=== PATIENT | female | born 1975 | race Caucasian/White ===

== ENCOUNTER 2020-08-05 19:14 | Emergency (ER) | payer MEDICAID ==
[2020-08-05] MEDS ORDERED: Bupivacaine 0.5%/EPINEPHrine 1:200,000 1.8 ML Cartridge INJECT ONE (20:16)
--- NOTE | 2020-08-05 20:49 | EDM.PDOC ---
ED HPI GENERAL MEDICAL PROBLEM - General Chief Complaint: ENT Problem Stated Complaint: BROKEN TOOTH/JAW PAIN Time Seen by Provider: 08/05/20 20:10 Source of Information: Reports: Patient History Limitations: Reports: No Limitations - History of Present Illness INITIAL COMMENTS - FREE TEXT/NARRATIVE: 45-year-old female with severe left mandibular pain from a likely infected sec ond molar. It started this morning and has been worsening all day. Onset: Gradual Duration: Day(s): Location: Reports: Other (Left mandible) left lower tooth pain Pain Score (Numeric/FACES): 15 - Related Data Allergies Allergy/AdvReac Type Severity Reaction Status Date / Time phenazopyridine Allergy Airway Verified 08/05/20 20:01 [From Pyridium] Tightness Home Meds: Home Meds NK [No Known Home Meds] 08/05/20 [History] Past Medical History Respiratory History: Reports: Asthma Gastrointestinal History: Reports: Irritable Bowel Syndrome Genitourinary History: Reports: None [employer] TECHNICIAN History: Reports: Musculoskeletal History: Reports: Fibromyalgia Psychiatric History: Reports: Anxiety Endocrine/Metabolic History: Reports: Obesity/BMI 30+ Hematologic History: Reports: Other (See Below) Other Hematologic History: Factor 5 - Infectious Disease History Infectious Disease History: Reports: Chicken Pox - Past Surgical History HEENT Surgical History: Reports: Myringotomy w Tube(s) Female Surgical History: Reports: Section, Tubal Ligation Social & Family History - Tobacco Use Tobacco Use Status *Q: Current Every Day Tobacco User Years of Tobacco use: 30 Packs/Tins Daily: 0.5 - Recreational Drug Use Recreational Drug Use: Yes Drug Use in Last 12 Months: Yes Recreational Drug Type: Reports: Marijuana/Hashish ED ROS ENT - Review of Systems Review Of Systems: See Below Constitutional: Denies: Fever, Chills Respiratory: Denies: Shortness of Breath Cardiovascular: Denies: Chest Pain GI/Abdominal: Denies: Nausea, Vomiting Musculoskeletal: Reports: Other (Fibromyalgia) Skin: Denies: Erythema ED EXAM, ENT - Physical Exam Exam: See Below Exam Limited By: No Limitations General Appearance: Alert, Anxious, Mild Distress Mouth/Throat: Other (Left mandibular first molar is gone, second molar is eroded anteriorly and extremely tender to percussion. There is surrounding erythema and mild swelling) Head: Atraumatic Neck: No: Lymphadenopathy (R), Lymphadenopathy (L) Respiratory/Chest: No Respiratory Distress Course - Vital Signs Last Recorded V/S: Last Vital Signs Temp 98.3 F 08/05/20 20:27 Pulse 100 08/05/20 20:27 Resp 17 08/05/20 20:27 BP 203/119 H 08/05/20 20:27 Pulse Ox 100 08/05/20 20:27 - Orders/Labs/Meds Meds: Medications Discontinued Medications Generic Name Dose Route Start Last Admin Trade Name Raheem PRN Reason Stop Dose Admin Bupivacaine HCl/Epinephrine Bitart 1.8 ml 08/05/20 20:16 08/05/20 20:50 Bupivacaine 0.5%/Epinephrine 1:200,000 1.8 Ml Cartridge INJECT 08/05/20 20:17 1.8 ml ONETIME ONE Administration - Re-Assessments/Exams Free Text/Narrative Re-Assessment/Exam: 08/06/20 02:23 An inferior alveolar nerve block was obtained with good results. Patient was placed on penicillin VK 500 4 times daily, encouraged to continue with ibuprofen and given 10 hydrocodone for extra pain control. A dental consult for Saturday was written. Departure - Departure Time of Disposition: 20:52 Disposition: Home, Self-Care 01 Clinical Impression: Dental abscess - Discharge Information Instructions: Dental Abscess, [id number] Referrals: PCP,None [Primary Care Provider] - Forms: ED Department Discharge Care Plan Goals: Take 800 mg of ibuprofen 3 times a day, take penicillin 4 times a day through the weekend and try to get worked into the dentist on Saturday morning, a referral will be sent. Sepsis Event Note (ED) - Evaluation Sepsis Screening Result: No Definite Risk - Focused Exam Vital Signs: Vital Signs Temp Pulse Resp BP Pulse Ox 08/05/20 20:27 98.3 F 100 17 203/119 H 100 08/05/20 20:03 98.3 F 100 17 203/119 H 100
== END 2020-08-05 21:00 | disposition home or self-care (01) ==
LOC: JP.ED 19:14
DX: K04.7 Periapical abscess without sinus (principal); J45.909 Unspecified asthma, uncomplicated; E66.9 Obesity, unspecified; Z68.42 Body mass index [BMI] 45.0-49.9, adult; Z88.8 Allergy status to other drugs, medicaments and biological substances; Z72.0 Tobacco use
CPT/HCPCS: 64400; 99282; J3490

== ENCOUNTER 2020-08-07 06:58 | Emergency (ER) | payer MEDICAID ==
--- NOTE | 2020-08-07 07:44 | EDM.PDOC ---
ED HPI GENERAL MEDICAL PROBLEM - General Chief Complaint: ENT Problem Stated Complaint: abscess tooth Time Seen by Provider: 08/07/20 07:36 Source of Information: Reports: Patient, RN Notes Reviewed History Limitations: Reports: No Limitations - History of Present Illness INITIAL COMMENTS - FREE TEXT/NARRATIVE: 45-year-old female presents emergency department with a complaint of ongoing dental pain she has an abscess which has initiated from a #17 was evaluated in the emergency department on the . 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: Musculoskeletal History: Reports: Fibromyalgia Psychiatric History: Reports: Anxiety Endocrine/Metabolic History: Reports: Obesity/BMI 30+ Hematologic History: Reports: Other (See Below) Other Hematologic History: Factor 5 - Infectious Disease History Infectious Disease History: Reports: Chicken Pox - Past Surgical History HEENT Surgical History: Reports: Myringotomy w Tube(s) Female Surgical History: Reports: Section, Tubal Ligation Social & Family History - Tobacco Use Tobacco Use Status *Q: Current Every Day Tobacco User Years of Tobacco use: 25 Packs/Tins Daily: 0.5 - Recreational Drug Use Recreational Drug Type: Reports: Marijuana/Hashish ED ROS ENT - Review of Systems Review Of Systems: See Below Constitutional: Reports: No Symptoms HEENT: Reports: Dental Pain ED EXAM, ENT - Physical Exam Exam: See Below Text/Narrative:: Mouth mucosa is moist and pink no erythema or exudate noted in soft palate tongue is midline uvula is midline she does have marked edema on the left side of the face including the cheek down into the jaw tooth #17 is poor Exam Limited By: No Limitations General Appearance: Alert, WD/WN, No Apparent Distress Course - Vital Signs Last Recorded V/S: Last Vital Signs Temp 97.6 F 08/07/20 07:19 Pulse 101 H 08/07/20 07:19 Resp 20 08/07/20 07:19 BP 144/86 H 08/07/20 07:19 Pulse Ox 16 L 08/07/20 07:19 Departure - Departure Time of Disposition: 07:43 Disposition: Home, Self-Care 01 Condition: Fair Clinical Impression: Dental abscess - Discharge Information Referrals: PCP,None [Primary Care Provider] - Forms: ED Department Discharge, ED Return to Work/School Form Additional Instructions: Continue to use ibuprofen for baseline pain control use hydrocodone for breakthrough pain please keep your appointment with dentistry tomorrow Sepsis Event Note (ED) - Evaluation Sepsis Screening Result: No Definite Risk - Focused Exam Vital Signs: Vital Signs Temp Pulse Resp BP Pulse Ox 08/07/20 07:19 97.6 F 101 H 20 144/86 H 16 L - Assessment/Plan Plan: Assessment Acuity = acute Site and laterality = dental abscess tooth #17 Etiology = dental caries Manifestations = none Location of injury = Home Lab values = none Plan Please keep your appointment with dentistry tomorrow prescription for hydrocodone 5/325 1 tab p.o. every 4-6 hours as needed total #6 This note was dictated using [employer] recognition software please call with any questions on syntax or grammar.
== END 2020-08-07 07:54 | disposition home or self-care (01) ==
LOC: JP.ED 06:58
DX: K04.7 Periapical abscess without sinus (principal); J45.909 Unspecified asthma, uncomplicated; E66.9 Obesity, unspecified; Z88.8 Allergy status to other drugs, medicaments and biological substances; Z68.42 Body mass index [BMI] 45.0-49.9, adult; Z72.0 Tobacco use
CPT/HCPCS: 99282

== ENCOUNTER 2023-02-01 09:42 | Emergency (ER) | payer MEDICAID ==
[2023-02-01] MEDS ORDERED: Albuterol/Ipratropium 3.0-0.5 MG/3 ML Neb Soln NEB ONE (10:44)
[2023-02-01 10:55] LABS: BASOPHILS ABSOLUTE AUTO 0.04 K/uL (0.00-0.10); BASOPHILS PERCENT AUTO 0.3 % (0.1-1.3); EOSINOPHILS PERCENT AUTO 0.1 % (0.0-5.4); HEMATOCRIT 38.9 % (34.3-46.0); HEMOGLOBIN 13.7 g/dL (11.2-15.5); IMMATURE GRAN PERCENT AUTO 3.2 % (0.0-0.7); LYMPHOCYTES ABSOLUTE AUTO 1.76 K/uL (0.8-3.3); LYMPHOCYTES PERCENT AUTO 14.1 % (11.4-47.7); MEAN CORPUSCULAR HEMOGLOBIN 39.7 pg (31.6-35.5); MEAN CORPUSCULAR HGB CONC 35.2 g/dL (31.6-35.5); MEAN CORPUSCULAR VOLUME 112.8 fL (81.4-99.0); MONOCYTES ABSOLUTE AUTO 1.08 K/uL (0.20-0.90); MONOCYTES PERCENT AUTO 8.7 % (3.3-12.6); NEUTROPHILS ABSOLUTE AUTO 9.18 K/uL (1.0-7.6); NEUTROPHILS PERCENT AUTO 73.6 % (40.0-78.1); PLATELET COUNT,PLT 200 K/uL (130-375); RED BLOOD CELL COUNT 3.45 M/uL (3.77-5.24); WHITE BLOOD CELL COUNT,WBC 12.5 K/uL (3.2-11.0)
[2023-02-01 10:56] LABS: EOSINOPHILS ABSOLUTE AUTO 0.01 K/uL (0.00-0.40)
[2023-02-01 11:05] LABS: BASE EXCESS VENOUS 4.1 mm/L; BICARBONATE,VENOUS 30.6 mmol/L; CARBOXYHEMOGLOBIN 5.6 % (0.0-1.6); O2 SATURATION VENOUS 51.7; OXYHEMOGLOBIN 48.3 %; PCO2 VENOUS 56.1 mm/Hg; PH,VENOUS 7.356 (7.350-7.450); TOTAL HEMOGLOBIN 13.9 g/dL (12.0-16.0)
[2023-02-01 11:06] LABS: PO2 VENOUS 32.7 mm/Hg
[2023-02-01 11:25] LABS: A/G RATIO 0.8 (1.2-2.2); ALANINE AMINOTRANSFERASE,ALT 93 U/L (12-78); ALKALINE PHOSPHATASE 171 U/L (46-116); ASPARTATE AMNIOTRANSFERASE,AST 159 U/L (15-37); BILIRUBIN TOTAL 2.8 mg/dL (0.2-1.0); BLOOD UREA NITROGEN,BUN 25 mg/dL (7-18); C-REACTIVE PROTEIN 5.96 mg/dL (0.0-0.3); CALCIUM 8.8 mg/dL (8.5-10.1); CARBON DIOXIDE,CO2 33 mmol/L (21-32); CHLORIDE,CL 93 mmol/L (100-108); CREATININE 1.6 mg/dL (0.6-1.0); EST CRCL DRUG DOSING (CG) 36.34 mL/min; ESTIMATED GFR 40 mL/min (>60); GLUCOSE RANDOM 103 mg/dL (74-106); POTASSIUM,K 3.7 mmol/L (3.6-5.2); PROTEIN TOTAL,TP 6.9 g/dL (6.4-8.2); SODIUM,NA 135 mmol/L (140-148)
[2023-02-01 11:32] LABS: ANION GAP 12.7 mmol/L (5.0-14.0)
[2023-02-01 11:34] LABS: TROPONIN I HIGH SENSITIVITY 105.5 pg/mL (<=60.3)
[2023-02-01] MEDS ORDERED: Sodium Chloride 0.9% 10 ML Syringe FLUSH PRN (12:06)
[2023-02-01] MEDS ORDERED: Iopamidol 612 MG/ML 100 ML Bottle IV PRN (12:06)
[2023-02-01] MEDS ORDERED: Iopamidol 612 MG/ML 500 ML Multipack Bottle IV ONE (12:10)
[2023-02-01] MEDS ORDERED: Sodium Chloride 0.9% 75 ML IV SCH (12:15)
[2023-02-01] MEDS ORDERED: Aspirin 81 MG Tab.Chew PO ONE (13:25)
== END 2023-02-01 13:47 ==
LOC: JP.ED 09:42
DX: I21.4 Non-ST elevation (NSTEMI) myocardial infarction (principal); J45.909 Unspecified asthma, uncomplicated; J44.9 Chronic obstructive pulmonary disease, unspecified; E66.9 Obesity, unspecified; F17.210 Nicotine dependence, cigarettes, uncomplicated; Z88.8 Allergy status to other drugs, medicaments and biological substances; Z68.43 Body mass index [BMI] 50.0-59.9, adult
CPT/HCPCS: 36415; 71260; 74177; 80053; 82803; 83880; 84443; 84484; 85025; 86140; 93005; 94640; 99285; J3490; Q9967; J7620

== ENCOUNTER 2024-01-17 08:36 | Emergency (ER) | payer MEDICAID ==
[2024-01-17] MEDS ORDERED: Sodium Chloride 0.9% 10 ML Syringe FLUSH PRN (09:02)
[2024-01-17] MEDS: Lactated Ringers 1,000 ML IV SCH (09:10)
[2024-01-17] MEDS: Ondansetron 4 MG/2 ML SDV IVPUSH ONE (09:11)
[2024-01-17] MEDS: fentaNYL 100 MCG/2 ML SDV IVPUSH ONE (09:11)
[2024-01-17 09:16] LABS: BASOPHILS ABSOLUTE AUTO 0.03 K/uL (0.00-0.10); BASOPHILS PERCENT AUTO 0.4 % (0.1-1.3); EOSINOPHILS ABSOLUTE AUTO 0.06 K/uL (0.00-0.40); EOSINOPHILS PERCENT AUTO 0.7 % (0.0-5.4); HEMATOCRIT 37.5 % (34.3-46.0); IMMATURE GRAN PERCENT AUTO 0.2 % (0.0-0.7); LYMPHOCYTES ABSOLUTE AUTO 1.76 K/uL (0.8-3.3); LYMPHOCYTES PERCENT AUTO 20.9 % (11.4-47.7); MEAN CORPUSCULAR HEMOGLOBIN 30.8 pg (31.6-35.5); MEAN CORPUSCULAR HGB CONC 34.7 g/dL (31.6-35.5); MEAN CORPUSCULAR VOLUME 88.9 fL (81.4-99.0); MONOCYTES ABSOLUTE AUTO 0.52 K/uL (0.20-0.90); MONOCYTES PERCENT AUTO 6.2 % (3.3-12.6); NEUTROPHILS ABSOLUTE AUTO 6.02 K/uL (1.0-7.6); NEUTROPHILS PERCENT AUTO 71.6 % (40.0-78.1); PLATELET COUNT,PLT 295 K/uL (130-375); RED BLOOD CELL COUNT 4.22 M/uL (3.77-5.24); WHITE BLOOD CELL COUNT,WBC 8.4 K/uL (3.2-11.0)
[2024-01-17 09:22] LABS: IMMATURE GRAN ABSOLUTE AUTO 0.02 K/uL (0.00-0.23)
[2024-01-17] MEDS: Sodium Chloride 0.9% 100 ML IV ONE (09:29)
[2024-01-17] MEDS: Iopamidol 612 MG/ML 100 ML Bottle IV ONE (09:29)
[2024-01-17] MEDS: Sodium Chloride 0.9% 10 ML Syringe FLUSH ONE (09:29)
[2024-01-17 09:41] LABS: A/G RATIO 0.9 (1.2-2.2); ALANINE AMINOTRANSFERASE,ALT 20 U/L (12-78); ALBUMIN 3.6 g/dL (3.4-5.0); ALKALINE PHOSPHATASE 100 U/L (46-116); ASPARTATE AMNIOTRANSFERASE,AST 15 U/L (15-37); BILIRUBIN TOTAL 0.6 mg/dL (0.2-1.0); BLOOD UREA NITROGEN,BUN 8 mg/dL (7-18); CALCIUM 9.8 mg/dL (8.5-10.1); CARBON DIOXIDE,CO2 27 mmol/L (21-32); CHLORIDE,CL 104 mmol/L (100-108); CREATININE 0.8 mg/dL (0.6-1.0); EST CRCL DRUG DOSING (CG) 71.91 mL/min; ESTIMATED GFR 91 mL/min (>60); GLUCOSE RANDOM 111 mg/dL (74-106); POTASSIUM,K 3.2 mmol/L (3.6-5.2); PROTEIN TOTAL,TP 7.6 g/dL (6.4-8.2); SODIUM,NA 141 mmol/L (140-148)
[2024-01-17 09:42] LABS: ANION GAP 13.2 mmol/L (5.0-14.0); TROPONIN I HIGH SENSITIVITY < 4.0 pg/mL (<=60.3)
[2024-01-17] MEDS: Lactated Ringers 1,000 ML IV ONE (10:56)
[2024-01-17] MEDS: Alum Hydrox/Mag Hydrox/Simeth 15 ML, Lidocaine 2% 15 ML PO ONE (11:00)
[2024-01-17 11:49] LABS: APPEARANCE,URINE CLEAR (CLEAR); BILIRUBIN,URINE NEGATIVE (NEGATIVE); COLOR,URINE YELLOW (YELLOW); GLUCOSE,URINE NEGATIVE (NEGATIVE); KETONES,URINE 15 mg/dL (NEGATIVE); LEUKOCYTE ESTERASE,URINE NEGATIVE (NEGATIVE); NITRITE,URINE NEGATIVE (NEGATIVE); OCCULT BLOOD,URINE NEGATIVE (NEGATIVE); PROTEIN,URINE NEGATIVE (NEGATIVE)
[2024-01-17 12:05] LABS: AMORPHOUS SEDIMENT,URINE NOT SEEN; BACTERIA,URINE NOT SEEN; EPITHELIAL CELLS,URINE MODERATE; MUCUS,URINE NOT SEEN; RBC,URINE 0-5 (0-5); WBC,URINE 0-5 (0-5)
[2024-01-17 12:06] LABS: AMPHETAMINES SCREEN, URINE NEGATIVE (NEGATIVE); BARBITURATE SCREEN,URINE NEGATIVE (NEGATIVE); BENZODIAZEPINES SCREEN,URINE NEGATIVE (NEGATIVE); METHADONE SCREEN, URINE NEGATIVE (NEGATIVE); METHAMPHETAMINES SCREEN, URINE NEGATIVE (NEGATIVE); OXYCODONE SCREEN,URINE NEGATIVE (NEGATIVE); PROPOXYPHENE SCREEN,URINE NEGATIVE (NEGATIVE); THC SCREEN,URINE 50 NG/ML PRESUMPTIVE POSITIVE (NEGATIVE)
== END 2024-01-17 13:09 | disposition home or self-care (01) ==
LOC: JP.ED 08:36
DX: R11.2 Nausea with vomiting, unspecified (principal); R19.7 Diarrhea, unspecified; I50.9 Heart failure, unspecified; J44.9 Chronic obstructive pulmonary disease, unspecified; E66.9 Obesity, unspecified; F17.210 Nicotine dependence, cigarettes, uncomplicated; Z79.01 Long term (current) use of anticoagulants; Z79.899 Other long term (current) drug therapy; Z88.8 Allergy status to other drugs, medicaments and biological substances
CPT/HCPCS: 36415; 74177; 80053; 80305; 80307; 81001; 83605; 83690; 84484; 85025; 96361; 96374; 96375; 99285; A9270; J2405; J3010; J3490; J7120; Q9967

== ENCOUNTER 2024-03-03 21:51 | Emergency (ER) | payer MEDICAID ==
[2024-03-03 22:12] LABS: BASOPHILS ABSOLUTE AUTO 0.03 K/uL (0.00-0.10); BASOPHILS PERCENT AUTO 0.4 % (0.1-1.3); EOSINOPHILS ABSOLUTE AUTO 0.34 K/uL (0.00-0.40); EOSINOPHILS PERCENT AUTO 4.2 % (0.0-5.4); HEMATOCRIT 35.6 % (34.3-46.0); HEMOGLOBIN 11.8 g/dL (11.2-15.5); IMMATURE GRAN ABSOLUTE AUTO 0.03 K/uL (0.00-0.23); IMMATURE GRAN PERCENT AUTO 0.4 % (0.0-0.7); LYMPHOCYTES ABSOLUTE AUTO 3.17 K/uL (0.8-3.3); LYMPHOCYTES PERCENT AUTO 39.3 % (11.4-47.7); MEAN CORPUSCULAR HEMOGLOBIN 30.6 pg (31.6-35.5); MEAN CORPUSCULAR HGB CONC 33.1 g/dL (31.6-35.5); MEAN CORPUSCULAR VOLUME 92.5 fL (81.4-99.0); MONOCYTES PERCENT AUTO 6.2 % (3.3-12.6); NEUTROPHILS ABSOLUTE AUTO 3.99 K/uL (1.0-7.6); NEUTROPHILS PERCENT AUTO 49.5 % (40.0-78.1); PLATELET COUNT,PLT 324 K/uL (130-375); RED BLOOD CELL COUNT 3.85 M/uL (3.77-5.24); WHITE BLOOD CELL COUNT,WBC 8.1 K/uL (3.2-11.0)
[2024-03-03 22:12] LABS: BASE EXCESS VENOUS 2.9 mm/L; BICARBONATE,VENOUS 29.1 mmol/L; CARBOXYHEMOGLOBIN 6.6 % (0.0-1.6); O2 SATURATION VENOUS 50.4; OXYHEMOGLOBIN 46.6 %; PCO2 VENOUS 54.8 mm/Hg; PH,VENOUS 7.345 (7.350-7.450); TOTAL HEMOGLOBIN 12.2 g/dL (12.0-16.0)
[2024-03-03 22:15] LABS: PO2 VENOUS 30.8 mm/Hg
[2024-03-03 22:39] LABS: A/G RATIO 0.9 (1.2-2.2); ALANINE AMINOTRANSFERASE,ALT 22 U/L (12-78); ALBUMIN 3.5 g/dL (3.4-5.0); ALKALINE PHOSPHATASE 93 U/L (46-116); ANION GAP 8.9 mmol/L (5.0-14.0); ASPARTATE AMNIOTRANSFERASE,AST 18 U/L (15-37); BILIRUBIN TOTAL 0.1 mg/dL (0.2-1.0); BLOOD UREA NITROGEN,BUN 14 mg/dL (7-18); CALCIUM 9.3 mg/dL (8.5-10.1); CARBON DIOXIDE,CO2 30 mmol/L (21-32); CHLORIDE,CL 102 mmol/L (100-108); CREATININE 0.8 mg/dL (0.6-1.0); ESTIMATED GFR 91 mL/min (>60); GLUCOSE RANDOM 105 mg/dL (74-106); POTASSIUM,K 3.8 mmol/L (3.6-5.2); PROTEIN TOTAL,TP 7.4 g/dL (6.4-8.2); SODIUM,NA 141 mmol/L (140-148)
[2024-03-04] MEDS: Sodium Chloride 0.9% 10 ML Syringe FLUSH PRN (00:28)
[2024-03-04] MEDS: Sodium Chloride 0.9% 100 ML IV ONE (00:28)
[2024-03-04] MEDS: Iopamidol 755 Mg/ML 100 ML Bottle IV SCH (00:28)
[2024-03-04] MEDS: methylPREDNISolone Sodium Succinate 125 MG/2 ML SDV IVPUSH ONE (01:30)
== END 2024-03-04 01:35 | disposition home or self-care (01) ==
LOC: JP.ED 21:51
DX: J40 Bronchitis, not specified as acute or chronic (principal); I50.9 Heart failure, unspecified; E66.9 Obesity, unspecified; Z79.899 Other long term (current) drug therapy; Z79.01 Long term (current) use of anticoagulants; Z88.8 Allergy status to other drugs, medicaments and biological substances
CPT/HCPCS: 36415; 71045; 71275; 80053; 80307; 82803; 83880; 84484; 85025; 85379; 93005; 96374; 99285; J2919; J3490; Q9967; 93010; 99284

== ENCOUNTER 2024-04-22 18:53 | Emergency (ER) | payer MEDICAID ==
[2024-04-22 19:48] LABS: BASOPHILS ABSOLUTE AUTO 0.03 K/uL (0.00-0.10); BASOPHILS PERCENT AUTO 0.3 % (0.1-1.3); EOSINOPHILS ABSOLUTE AUTO 0.18 K/uL (0.00-0.40); EOSINOPHILS PERCENT AUTO 1.7 % (0.0-5.4); HEMATOCRIT 36.7 % (34.3-46.0); HEMOGLOBIN 12.1 g/dL (11.2-15.5); IMMATURE GRAN ABSOLUTE AUTO 0.04 K/uL (0.00-0.23); IMMATURE GRAN PERCENT AUTO 0.4 % (0.0-0.7); LYMPHOCYTES ABSOLUTE AUTO 2.37 K/uL (0.8-3.3); LYMPHOCYTES PERCENT AUTO 21.8 % (11.4-47.7); MEAN CORPUSCULAR VOLUME 91.1 fL (81.4-99.0); MONOCYTES ABSOLUTE AUTO 0.69 K/uL (0.20-0.90); MONOCYTES PERCENT AUTO 6.4 % (3.3-12.6); NEUTROPHILS ABSOLUTE AUTO 7.55 K/uL (1.0-7.6); NEUTROPHILS PERCENT AUTO 69.4 % (40.0-78.1); PLATELET COUNT,PLT 286 K/uL (130-375); RED BLOOD CELL COUNT 4.03 M/uL (3.77-5.24); WHITE BLOOD CELL COUNT,WBC 10.9 K/uL (3.2-11.0)
[2024-04-22] MEDS: Ketorolac 30 MG/ML SDV IM ONE (20:03)
[2024-04-22] MEDS: Triamcinolone Acetonide 40 MG/ML 1 ML SDV IM ONE (20:19)
== END 2024-04-22 20:36 | disposition home or self-care (01) ==
LOC: JP.ED 18:53
DX: M10.9 Gout, unspecified (principal); J44.89 Other specified chronic obstructive pulmonary disease; E66.9 Obesity, unspecified; Z68.42 Body mass index [BMI] 45.0-49.9, adult; Z88.8 Allergy status to other drugs, medicaments and biological substances; Z79.51 Long term (current) use of inhaled steroids; Z79.01 Long term (current) use of anticoagulants; Z79.899 Other long term (current) drug therapy
CPT/HCPCS: 36415; 84550; 85025; 96372; 99283; J1885; J3301

== ENCOUNTER 2024-05-08 10:26 | Day surgery (SDC) | payer MEDICAID ==
[2024-05-08] MEDS ORDERED: Propofol 200 MG/20 ML SDV ONE ×2 (10:53→11:52)
[2024-05-08] MEDS ORDERED: fentaNYL 50 MCG/ML SDV ONE (10:53)
[2024-05-08] MEDS ORDERED: Midazolam 1 MG/ML 2 ML SDV ONE (10:53)
[2024-05-08] MEDS: Lactated Ringers 1,000 ML IV SCH (11:34)
[2024-05-08] MEDS ORDERED: Acetaminophen/HYDROcodone 325-5 MG Tab PO ONE (11:50)
[2024-05-08] MEDS ORDERED: Ondansetron 4 MG/2 ML SDV IVPUSH ONE (12:15)
== END 2024-05-08 13:45 | disposition home or self-care (01) ==
LOC: JP.SDS 10:26
PROVIDERS: ATTEND Surgery
DX: Z12.11 Encounter for screening for malignant neoplasm of colon (principal); D21.4 Benign neoplasm of connective and other soft tissue of abdomen; K51.40 Inflammatory polyps of colon without complications; K20.90 Esophagitis, unspecified without bleeding; K22.89 Other specified disease of esophagus; K21.9 Gastro-esophageal reflux disease without esophagitis; F17.200 Nicotine dependence, unspecified, uncomplicated
CPT/HCPCS: 00813-QZ; 88305; 88342; J2250; J2704; J3010; J7120

== ENCOUNTER 2024-06-06 06:04 | Emergency (ER) | payer MEDICAID | END 2024-06-06 07:13 | disposition home or self-care (01) | LOC: JP.ED 06:04 | DX: G89.18 Other acute postprocedural pain (principal); I50.9 Heart failure, unspecified; J44.9 Chronic obstructive pulmonary disease, unspecified; E66.9 Obesity, unspecified; Z79.899 Other long term (current) drug therapy; Z79.01 Long term (current) use of anticoagulants; Z79.2 Long term (current) use of antibiotics; Z79.51 Long term (current) use of inhaled steroids; Z88.8 Allergy status to other drugs, medicaments and biological substances; Z68.43 Body mass index [BMI] 50.0-59.9, adult | CPT/HCPCS: 99283 ==

== ENCOUNTER 2024-06-11 08:49 | Emergency (ER) | payer MEDICAID ==
[2024-06-11] MEDS ORDERED: Lidocaine 2% 30 ML, Alum Hydrox/Mag Hydrox/Simeth 30 ML, diphenhydrAMINE 75 MG PO PRN (09:46)
[2024-06-11] MEDS: Lidocaine 2% 5 ML, Alum Hydrox/Mag Hydrox/Simeth 5 ML, diphenhydrAMINE 12.5 MG PO PRN (10:28)
== END 2024-06-11 11:14 | disposition home or self-care (01) ==
LOC: JP.ED 08:49
DX: K12.1 Other forms of stomatitis (principal); I50.9 Heart failure, unspecified; J44.89 Other specified chronic obstructive pulmonary disease; F17.210 Nicotine dependence, cigarettes, uncomplicated; Z88.8 Allergy status to other drugs, medicaments and biological substances; Z79.51 Long term (current) use of inhaled steroids; Z79.899 Other long term (current) drug therapy; Z79.01 Long term (current) use of anticoagulants
CPT/HCPCS: 99283; A9270-GY

== ENCOUNTER 2024-10-08 17:45 | Emergency (ER) | payer MEDICAID | END 2024-10-08 20:56 | disposition home or self-care (01) | LOC: JP.ED 17:45 | DX: S80.12XA Contusion of left lower leg, initial encounter (principal); I50.9 Heart failure, unspecified; J44.89 Other specified chronic obstructive pulmonary disease; Z88.8 Allergy status to other drugs, medicaments and biological substances; Z79.01 Long term (current) use of anticoagulants; Z79.51 Long term (current) use of inhaled steroids; Z79.899 Other long term (current) drug therapy; Z79.85 Long-term (current) use of injectable non-insulin antidiabetic drugs; Z86.16 Personal history of COVID-19; W10.8XXA Fall (on) (from) other stairs and steps, initial encounter; Y93.89 Activity, other specified | CPT/HCPCS: 73562-26-LT; 73562-LT; 99283 ==

== ENCOUNTER 2024-12-11 20:05 | Emergency (ER) | payer MEDICAID ==
[2024-12-11 20:28] LABS: BASOPHILS ABSOLUTE AUTO 0.04 K/uL (0.00-0.10); BASOPHILS PERCENT AUTO 0.4 % (0.1-1.3); EOSINOPHILS ABSOLUTE AUTO 0.19 K/uL (0.00-0.40); EOSINOPHILS PERCENT AUTO 1.8 % (0.0-5.4); IMMATURE GRAN ABSOLUTE AUTO 0.03 K/uL (0.00-0.23); IMMATURE GRAN PERCENT AUTO 0.3 % (0.0-0.7); LYMPHOCYTES ABSOLUTE AUTO 2.88 K/uL (0.8-3.3); LYMPHOCYTES PERCENT AUTO 26.9 % (11.4-47.7); MONOCYTES ABSOLUTE AUTO 0.63 K/uL (0.20-0.90); MONOCYTES PERCENT AUTO 5.9 % (3.3-12.6); NEUTROPHILS ABSOLUTE AUTO 6.95 K/uL (1.0-7.6); NEUTROPHILS PERCENT AUTO 64.7 % (40.0-78.1); O2 SATURATION ARTERIAL 93.4 % (95.0-98.0); OXYHEMOGLOBIN 89.4 %; PCO2 ARTERIAL 38.3 mmHg (35.0-42.0); PLATELET COUNT,PLT 323 K/uL (130-375); PO2 ARTERIAL 66.4 mmHg (75.0-100.0); RED BLOOD CELL COUNT 3.78 M/uL (3.77-5.24); TOTAL HEMOGLOBIN 9.5 g/dL (12.0-16.0); WHITE BLOOD CELL COUNT,WBC 10.7 K/uL (3.2-11.0)
[2024-12-11 20:31] LABS: BASE EXCESS ARTERIAL 0.9 mm/L; BICARBONATE,ARTERIAL 24.7 mmol/L (22.0-26.0)
[2024-12-11] MEDS: Sodium Chloride 0.9% 10 ML Syringe FLUSH ONE (20:34)
[2024-12-11] MEDS: Iopamidol 755 Mg/ML 100 ML Bottle IV ONE (20:55)
[2024-12-11 21:01] LABS: LACTIC ACID 0.6 mmol/L (0.4-2.0)
[2024-12-11 21:08] LABS: A/G RATIO 1.0 (1.2-2.2); ALANINE AMINOTRANSFERASE,ALT 19 U/L (12-78); ASPARTATE AMNIOTRANSFERASE,AST 17 U/L (15-37); BILIRUBIN TOTAL 0.3 mg/dL (0.2-1.0); BLOOD UREA NITROGEN,BUN 12 mg/dL (7-18); CARBON DIOXIDE,CO2 27 mmol/L (21-32); CHLORIDE,CL 103 mmol/L (100-108); CREATININE 0.8 mg/dL (0.6-1.0); EST CRCL DRUG DOSING (CG) 77.38 mL/min; ESTIMATED GFR 91 mL/min (>60); GLUCOSE RANDOM 95 mg/dL (74-106); POTASSIUM,K 3.1 mmol/L (3.6-5.2); PROTEIN TOTAL,TP 6.9 g/dL (6.4-8.2); SODIUM,NA 138 mmol/L (140-148); TROPONIN I HIGH SENSITIVITY 4.2 pg/mL (<=60.3)
[2024-12-11 21:30] LABS: APPEARANCE,URINE CLOUDY (CLEAR); GLUCOSE,URINE NEGATIVE (NEGATIVE); OCCULT BLOOD,URINE LARGE (NEGATIVE)
[2024-12-11 21:39] LABS: AMPHETAMINES SCREEN, URINE NEGATIVE (NEGATIVE); METHADONE SCREEN, URINE NEGATIVE (NEGATIVE); METHAMPHETAMINES SCREEN, URINE NEGATIVE (NEGATIVE); OXYCODONE SCREEN,URINE NEGATIVE (NEGATIVE); PROPOXYPHENE SCREEN,URINE NEGATIVE (NEGATIVE); THC SCREEN,URINE 50 NG/ML PRESUMPTIVE POSITIVE (NEGATIVE)
[2024-12-11 21:58] LABS: SQUAMOUS EPITHELIAL CELLS,UR MODERATE /HPF; UROTHELIAL CELLS,URINE NOT SEEN /HPF
== END 2024-12-11 22:39 | disposition home or self-care (01) ==
LOC: JP.ED 20:05
DX: T67.5XXA Heat exhaustion, unspecified, initial encounter (principal); E86.0 Dehydration; J44.89 Other specified chronic obstructive pulmonary disease; I50.9 Heart failure, unspecified; E66.9 Obesity, unspecified; Z79.899 Other long term (current) drug therapy; Z88.8 Allergy status to other drugs, medicaments and biological substances; Z68.41 Body mass index [BMI] 40.0-44.9, adult
CPT/HCPCS: 36415; 36600; 70450; 70496; 70498; 80053; 80305; 80307; 81001; 82803; 83605; 84484; 85025; 85379; 86140; 93005; 96360; 99285; J7030; Q9967; 93010; 99284